=== PATIENT | female | born 1990 | race Caucasian/White ===

== ENCOUNTER 2022-02-21 09:19 | Outpatient (CLI) | payer BC, SELFPAY ==
[2022-02-21 11:22] LABS: Basophils Absolute Auto 0.1 K/mm3 (0.0-0.1); Basophils Percent Auto 0.3 % (0.2-1.2); Eosinophils Absolute Auto 0.1 K/mm3 (0-0.3); Eosinophils Percent Auto 0.3 % (0-4.4); Hematocrit 33.7 % (37.0-47.0); Hemoglobin 11.6 g/dL (12.0-15.0); Immature Granulocyte Absolute 0.13 K/mm3 (0.00-0.031); Immature Granulocyte Percent A 0.9 % (0-0.5); Lymphocytes Absolute Auto 2.33 K/mm3 (0.9-3.2); Lymphocytes Percent Auto 16.3 % (18.3-44.2); Mean Corpuscular HGB Conc 34.4 g/dl (32-36); Mean Corpuscular Hemoglobin 30.4 pg (26-34); Mean Corpuscular Volume 88.2 fl (80-100); Monocytes Absolute Auto 0.6 K/mm3 (0.1-0.6); Monocytes Percent Auto 3.9 % (2.6-8.5); Neutrophils Absolute Auto 11.2 K/mm3 (1.3-6.7); Neutrophils Percent Auto 78.3 % (45.5-73.1); Platelet Count Result 261 k/mm3 (150-375); Red Blood Count 3.82 M/mm3 (4.2-5.4); Red Cell Distribution Width 12.6 % (11.5-14.5); White Blood Count 14.3 K/mm3 (4.5-10.0)
[2022-02-21 11:30] LABS: Glucose 1 Hour PP 50gm Dose 121 mg/dL
[2022-02-21 12:12] LABS: HIV 1/2 Ab P24 Ag Result Negative (Negative)
[2022-02-21 12:23] LABS: Hepatitis B Surface Antigen Negative (Negative); Rubella IgG Antibody 9.5 IU/ML
[2022-02-21 15:56] LABS: Rapid Plasma Reagin Non-Reactive (NonReactive)
== END 2022-02-21 09:20 | disposition home or self-care (01) ==
PROVIDERS: Visit Provider Obstetrics & Gynecology
DX: N94.89 Other specified conditions associated with female genital organs and menstrual cycle (principal)
CPT/HCPCS: 36415; 82947; 85025; 86592; 86644; 86703; 86747; 86762; 86787; 86850; 86900; 86901; 87086; 87340; G0432

== ENCOUNTER 2022-06-14 09:47 | Outpatient (CLI) | payer BC, SELFPAY ==
[2022-06-14 11:14] LABS: Basophils Absolute Auto 0.1 K/mm3 (0.0-0.1); Basophils Percent Auto 0.5 % (0.2-1.2); Eosinophils Absolute Auto 0.3 K/mm3 (0-0.3); Eosinophils Percent Auto 1.9 % (0-4.4); Hematocrit 32.6 % (37.0-47.0); Hemoglobin 10.9 g/dL (12.0-15.0); Immature Granulocyte Absolute 0.45 K/mm3 (0.00-0.031); Lymphocytes Percent Auto 14.7 % (18.3-44.2); Mean Corpuscular HGB Conc 33.4 g/dl (32-36); Mean Corpuscular Hemoglobin 29.5 pg (26-34); Mean Corpuscular Volume 88.3 fl (80-100); Mean Platelet Volume 10.5 fl (7.4-10.4); Monocytes Absolute Auto 0.8 K/mm3 (0.1-0.6); Monocytes Percent Auto 5.6 % (2.6-8.5); Neutrophils Absolute Auto 11.1 K/mm3 (1.3-6.7); Neutrophils Percent Auto 74.3 % (45.5-73.1); Platelet Count Result 233 k/mm3 (150-375); Red Blood Count 3.69 M/mm3 (4.2-5.4); Red Cell Distribution Width 13.2 % (11.5-14.5)
[2022-06-14 11:28] LABS: Glucose 1 Hour PP 50gm Dose 132 mg/dL
[2022-06-14 12:08] LABS: HIV 1/2 Ab P24 Ag Result Negative (Negative)
== END 2022-06-14 09:48 | disposition home or self-care (01) ==
LOC: ANHLAB 09:48
PROVIDERS: Visit Provider Obstetrics & Gynecology
DX: Z34.90 Encounter for supervision of normal pregnancy, unspecified, unspecified trimester (principal); Z3A.00 Weeks of gestation of pregnancy not specified
CPT/HCPCS: 36415; 82947; 85025; 86703; G0432

== ENCOUNTER 2022-07-30 11:17 | Outpatient (CLI) | payer BC, SELFPAY ==
[2022-07-30] VITALS (8 sets, daily range): BP systolic 135–144; BP diastolic 86–100; PULSE 88–109; BMI 40.1
--- NOTE | ~2022-07-30 | US_ITS ---
EXAMINATION: US OB limited w BPP DATE: 07/30/2022 13:34 HOSPITALITY MANAGER INDICATION: Hypertension during . TECHNIQUE: Real-time transabdominal obstetric ultrasound. FINDINGS: Comparison to 05/10/2002 There is a single living fetus in vertex presentation. The placenta is posterior without placenta pr evia. SHANT is normal measuring 1.7 cm. cardiac activity and movement is noted with a heart rate of 155 beats per minute. Biophysical profile: breathin of 2 movement: 2 of 2 tone: 2 of 2 Amniotic flud pocket: 2 of 2 Total score: 8 of 8 IMPRESSION: 1. Single living intrauterine in vertex presentation. 2: Total biophysical profile score of 8/8. Reviewed, dictated and finalized at location L. ITALITY MANAGER
[2022-07-30 12:11] LABS: Basophils Percent Auto 0.3 % (0.2-1.2); Eosinophils Absolute Auto 0.1 K/mm3 (0-0.3); Eosinophils Percent Auto 0.4 % (0-4.4); Hematocrit 35.6 % (37.0-47.0); Hemoglobin 11.7 g/dL (12.0-15.0); Immature Granulocyte Absolute 0.16 K/mm3 (0.00-0.031); Immature Granulocyte Percent A 1.2 % (0-0.5); Lymphocytes Absolute Auto 1.96 K/mm3 (0.9-3.2); Lymphocytes Percent Auto 15.1 % (18.3-44.2); Mean Corpuscular HGB Conc 32.9 g/dl (32-36); Mean Corpuscular Hemoglobin 28.7 pg (26-34); Mean Corpuscular Volume 87.5 fl (80-100); Mean Platelet Volume 11.2 fl (7.4-10.4); Monocytes Absolute Auto 0.9 K/mm3 (0.1-0.6); Monocytes Percent Auto 6.8 % (2.6-8.5); Neutrophils Absolute Auto 9.9 K/mm3 (1.3-6.7); Neutrophils Percent Auto 76.2 % (45.5-73.1); Platelet Count Result 235 k/mm3 (150-375); Red Blood Count 4.07 M/mm3 (4.2-5.4); Red Cell Distribution Width 15.1 % (11.5-14.5)
[2022-07-30 12:16] LABS: Appearance Urine Clear (Clear); Bilirubin Urine Negative (Negative); Blood Urine Negative (Negative); Color Urine Yellow (Yellow); Glucose Urine UA Negative (Negative); Ketones Urine Negative (Negative); Leukocyte Esterase Ur Trace LEU/UL (Negative); Nitrate Urine Negative (Negative); Protein Urine 1+ mg/dL (Negative); Specific Grav Ur 1.025 (1.001-1.035); Urobilinogen Urine 0.2 mg/dL (<2.0); pH Urine 7.5 (5.0-9.0)
[2022-07-30 12:21] LABS: Creatinine Urine 131.4 mg/dL; Total Protein Urine Random 40 mg/dL
[2022-07-30 12:22] LABS: Bacteria Urine Trace /hpf; Mucus Urine Rare /lpf; RBC Urine 0-2 /hpf (0-2); Squamous Epithelial Cell Urine Many /hpf (Few)
[2022-07-30 12:24] LABS: Add Urine Microscopic? YES
[2022-07-30 12:36] LABS: Alanine Aminotransferase 13 U/L (6-35); Albumin Level 3.6 g/dL (3.5-5.1); Alkaline Phosphatase 145 U/L (38-126); Anion Gap 4 mmol/L (8-16); Aspartate Amino Transferase 18 U/L (14-36); Bilirubin,Total 0.4 mg/dL (0.2-1.3); Blood Urea Nitrogen 6 mg/dL (7-17); Calcium 9.3 mg/dL (8.4-10.2); Carbon Dioxide 22 mmol/L (22-30); Chloride 108 mmol/L (98-107); Estimated CRCL calculation 130 ml/min; Estimated Glomerular Filt Rate > 60; Glucose 77 mg/dL (65-110); Potassium 4.2 mmol/L (3.4-5.0); Sodium 134 mmol/L (137-145); Uric Acid 5.1 mg/dL (2.5-7.5)
--- NOTE | 2022-07-30 12:51 | PC.NURSE ---
Dr. Mckeon informed of BP's, and lab results. OK to discharge to home and come back am for induction of labor. Give preeclampsia precautions.
--- NOTE | 2022-07-30 12:58 | PC.NURSE ---
Called Dr. Mckeon back and informed him baby just had a 30 sec variable down to 130 and a couple of other variables were noted when entire tracing was reviewed prior to discharging pt. Order received for BPP and SHANT.
--- NOTE | 2022-07-30 13:45 | PC.NURSE ---
Dr. Mckeon informed BPP 01/14 and SHANT is 11.7 cm. OK to discharge pt to home, but he wants to change her induction of labor to tomorrow evening and start with Cervidil. Pt informed of plan of care and questions answered.
== END 2022-07-30 13:59 | disposition home or self-care (01) ==
LOC: ANHOBOP 11:22 → ANHOBPP 11:24
PROVIDERS: Visit Provider Obstetrics & Gynecology
DX: O13.9 Gestational [pregnancy-induced] hypertension without significant proteinuria, unspecified trimester (principal); Z3A.00 Weeks of gestation of pregnancy not specified
CPT/HCPCS: 36415; 59025; 76815; 76819; 80053; 81001; 82570; 84156; 84550; 85025; 87077; 87086; 87088; 99199

== ENCOUNTER 2022-07-31 15:54 | Inpatient (IN) | payer BC, SELFPAY ==
[2022-07-31] VITALS (32 sets, daily range): BP systolic 117–153; BP diastolic 60–111; PULSE 90–114; RESP 12–18; TEMP 36.8–37; BMI 39.4
[2022-07-31] MEDS: DINOPROSTONE 10 MG VAG INSERT VAGINAL (17:18)
[2022-07-31] MEDS: LACTATED RINGERS 1,000 ML 125 ML IV CONT (17:19)
[2022-07-31] MEDS: AMPICILLIN 2 GM/NS 100 ML 2 GM/100 ML BAG IVPB (17:19)
[2022-07-31 18:29] LABS: Basophils Percent Auto 0.3 % (0.2-1.2); Eosinophils Absolute Auto 0.1 K/mm3 (0-0.3); Eosinophils Percent Auto 0.7 % (0-4.4); Hematocrit 34.9 % (37.0-47.0); Hemoglobin 11.5 g/dL (12.0-15.0); Immature Granulocyte Absolute 0.11 K/mm3 (0.00-0.031); Immature Granulocyte Percent A 0.9 % (0-0.5); Lymphocytes Absolute Auto 1.64 K/mm3 (0.9-3.2); Mean Corpuscular Hemoglobin 28.9 pg (26-34); Mean Corpuscular Volume 87.7 fl (80-100); Mean Platelet Volume 11.8 fl (7.4-10.4); Monocytes Absolute Auto 0.8 K/mm3 (0.1-0.6); Monocytes Percent Auto 7.2 % (2.6-8.5); Neutrophils Percent Auto 76.9 % (45.5-73.1); Platelet Count Result 244 k/mm3 (150-375); Red Blood Count 3.98 M/mm3 (4.2-5.4); Red Cell Distribution Width 15.2 % (11.5-14.5); White Blood Count 11.7 K/mm3 (4.5-10.0)
--- NOTE | 2022-07-31 18:56 | WPDANESEPP ---
Anes - Eval Pre Procedure Procedure: labor epidural Date/Time: 07/31/22 18:56 Surgeon: sydnie Preop Diagnosis: pain during labor Pre Op Diagnosis: iol Patient Data Age: 31 Gender: F Height: 1.6 m Weight: 101 kg Last Vital Signs Pulse 109 H 07/31/22 18:46 BP 140/87 07/31/22 18:46 Allergies Allergy/AdvReac Type Severity Reaction Status Date / Time No Known Allergies Allergy Verified 07/30/22 10:26 Home Medications Medication Instructions Recorded Confirmed Type vitamins-iron fumarate 65 1 tablet PO DAILY 01/21/22 07/31/22 History mg iron-folic acid 1 mg tablet ferrous sulfate 325 mg (65 mg 325 mg PO DAILY 07/01/22 07/31/22 History iron) tablet Laboratory Tests 07/31/22 07/31/22 07/31/22 16:34 16:34 16:34 WBC 11.7 K/mm3 H K/mm3 (4.5-10.0) RBC 3.98 M/mm3 L M/mm3 (4.2-5.4) Hgb 11.5 g/dL L g/dL (12.0-15.0) Hct 34.9 % L % (37.0-47.0) MCV 87.7 fl fl (80-100) MCH 28.9 pg pg (26-34) MCHC 33.0 g/dl g/dl (32-36) RDW 15.2 % H % (11.5-14.5) Plt Count 244 k/mm3 k/mm3 (150-375) MPV 11.8 fl H fl (7.4-10.4) Immature Gran % (Auto) 0.9 % H % (0-0.5) Neut % (Auto) 76.9 % H % (45.5-73.1) Lymph % (Auto) 14.0 % L % (18.3-44.2) [place] % (Auto) 7.2 % % (2.6-8.5) Eos % (Auto) 0.7 % % (0-4.4) Baso % (Auto) 0.3 % % (0.2-1.2) Lymph # (Auto) 1.64 K/mm3 K/mm3 (0.9-3.2) [place] # (Auto) 0.8 K/mm3 H K/mm3 (0.1-0.6) Eos # (Auto) 0.1 K/mm3 K/mm3 (0-0.3) Baso # (Auto) 0.0 K/mm3 K/mm3 (0.0-0.1) Abs Immat Gran (auto) 0.11 K/mm3 H K/mm3 (0.00-0.031) Absolute Neuts (auto) 9.0 K/mm3 H K/mm3 (1.3-6.7) Absolute Nucleated RBC 0.0 K/mm3 K/mm3 (0.0-0.012) Nucleated RBC % 0.0 % % (0.0-0.2) RPR Pending Blood Type O Positive Antibody Screen Negative Patient hx anesthesia problems: none Family hx anesthesia problems: none Results Review: All pre-operative results and documents have been reviewed as part of the pre-operative evaluation. [facility] Past Medical History Medical History (Updated 07/31/22 @ 18:57 by Martha Quarles CRNA) IUP (intrauterine ), incidental Obesity (BMI 30-39.9) Suppression of menstruation Family History Family History Other Patient denies significant medical history Social History Social History Smoking status: Never smoker Tobacco type: cigarettes Smoking end date: 06/09/01 Alcohol intake: never Substance use: never Substance use type: does not use Lack of Transportation: No Lack of Food: Never True Current Housing: I Have Housing Concerned About Future Housing: No Difficulty Paying Gas/Electric Bills: No Difficulty Paying for Meds: No Currently Unemployed: No Education: High School Diploma/GED Difficulty w/ Childcare or Family Care: No Living arrangements: other Additional living arrangements comments: Occupation/Education: other Additional occupation/education comments: stay at home mom Gender identity (if verbalized by the patient): Female Sexual Orientation (if Verbalized by the Patient): Straight or Heterosexual Spiritual care concerns: No Exam Day of Procedure 07/31/22 18:56
[2022-07-31] MEDS: AMPICILLIN 1 GM/NS 50 ML 1 GM/50 ML BAG IVPB (21:50)
[2022-08-01] VITALS (259 sets, daily range): BP systolic 86–166; BP diastolic 42–137; PULSE 70–190; RESP 16–20; TEMP 36.5–37.7; O2SAT 79–100
[2022-08-01] MEDS: AMPICILLIN 1 GM/NS 50 ML 1 GM/50 ML BAG IVPB ×5 (02:05→18:56)
[2022-08-01] MEDS: OXYTOCIN 30 UNITS/NS 500 ML 30 UNITS/500 ML BAG IV CONT (06:06)
[2022-08-01] MEDS: LACTATED RINGERS 1,000 ML 125 ML IV CONT ×3 (07:10→19:11)
[2022-08-01] MEDS: ONDANSETRON INJ 4 MG/2 ML VIAL IV PUSH (10:46)
[2022-08-01 13:09] LABS: Rapid Plasma Reagin Non-Reactive (NonReactive)
--- NOTE | 2022-08-01 19:53 | WPDHPUPDATE1 ---
History and Physical Update Update Date/Time: 08/01/22 19:53 Patient has been laboring slowly today, baby has been tolerating labor until [id number] ago. Baby is not tachycardic with minimal to moderate variability. Had been having decelerations but these have resolved. However with her pushing and still at 0 station with large amount of caput and likely occiput transverse position I have discussed with the patient and we will proceed with primary delivery both due to arrest of descent as well as tachycardia with minimal variability. Questions have been answered and patient and agree with plan of care. Assessment: 1. 40 week intrauterine 2. Arrest of descent 3. tachycardia with minimal variability 4. Meconium-stained fluid Plan: 1. Proceed with primary low-transverse section with pediatric physician in attendance History and Physical has been reviewed, including an updated exam of the patient. There are NO changes in the patient's condition. Risks, benefits, and alternatives have been discussed and questions answered. Patient agrees to proceed with procedure.
[2022-08-01] MEDS: ceFAZolin 2 GM/D5W 50 ML 2 GM/50 ML BAG IVPB (19:55)
--- NOTE | 2022-08-01 19:56 | WPDOBADMIT ---
Obstetrics - Admit Note Admission Note: record reviewed. No pertinent additions to the history and/or any subsequent changes in the physical findings that are not consistent with the expected course of the were found. Additions to the history and/or subsequent changes in the physical findings follow. None.
--- NOTE | 2022-08-01 20:37 | P.PCNOB_ITS ---
OB - Delivery Note Procedure Procedure: Procedures Operation Date: 08/01/22 19:55 <No data on this case meets the specified criteria> Events: Positive Group B Strep (GBS) Intrapartal Events: Arrest of Descent and Non-Reassuring Status Induction method: Per Misoprostol Protocol Delivery augmentation: Rupture of Membranes and Pitocin Delivery monitor: External FHT and External Uterine Route of delivery: Prior to decision for section, ACOG/SM labor guidelines were considered and discussed with the patient and staff. Decision made to proceed with the section.: Yes Specimen: Yes ( placenta) Quantitative Blood Loss (ml): 660 Anesthesia type: Epidural Disposition: Floor Complications: None Narrative: patient prepped draped usual manner for this procedure. Pfannenstiel incision was made and carried down to the fascia which was then extended bilaterally the length of the skin incision. Superiorly and inferiorly dissected away from the rectus muscles. Peritoneum was readily entered bladder flap was developed. Uterus scored with a coning stained fluid noted. Vertex was delivered without difficulty and the rest of baby followed cord clamped cut baby was passed off to crystal flat grinder in attendance. Placenta was then removed manually and the placenta was cleared of membranes and clots. 0 Monocryl was used to approximate the uterine incision. There was a small extension in the midline approximately 2cm which was also closed using 0 Monocryl in a running interlocking manner. At the end of the closure of the incision hemostasis had been achieved. Uterus was turned to the abdomen incision again inspected with 1 small area of oozing which was readily entered rendered hemostatic using a [id number] 0 Monocryl suture. All subfascial tissue was noted be hemostatic the fascia was then approximated using 0 Vicryl from the left angle to midline and the right angle to midline. Subcutaneous tissue was approximated using 0 plain and maico were used to approximate the skin edges. Patient was sent to recovery room stable condition. Baby Weeks of gestation at delivery: 40 gender: Female Weight (pounds): 8 Weight (ounces): 1 presentation: vertex position: Transverse Placenta delivery description: Manual Removal Cord Vessel Description: 3 Vessels [facility]G Delivery Billing Delivery Delivery: Delivery Charge
[2022-08-01] MEDS: OXYTOCIN 30 UNITS/NS 500 ML 30 UNITS/500 ML BAG 125 UNITS IV CONT (21:21)
[2022-08-01] MEDS: HYDROmorphone HCL INJ (*CRX) 1 MG/ML SYR 0.5 MG IV PUSH (22:25)
--- NOTE | 2022-08-01 23:22 | OBPPTRN ---
Patient transferred to post room #282 via stretcher. Support person present. Oriented to unit, room, information board, rooming in, admission packet and security measures. Patient verbalizes understanding.
[2022-08-02] MEDS: DEXTROSE 5%/0.45% SOD CHL 1,000 ML 125 ML IV CONT (02:34)
[2022-08-02 04:40] VITALS: BP 121/58; PULSE 102; RESP 18; TEMP 36.9; O2SAT 100
[2022-08-02] MEDS: IBUPROFEN 600 MG TABLET PO ×3 (04:50→22:10)
[2022-08-02] MEDS: SIMETHICONE 80 MG TAB.CHEW PO ×2 (04:50→18:47)
[2022-08-02] MEDS: HYDROcodone/acetaminophen (*CRX) 10-325 MG TABLET 1 TAB PO ×3 (04:50→14:51)
[2022-08-02 05:07] LABS: Basophils Absolute Auto 0.1 K/mm3 (0.0-0.1); Basophils Percent Auto 0.2 % (0.2-1.2); Hematocrit 30.1 % (37.0-47.0); Hemoglobin 9.6 g/dL (12.0-15.0); Immature Granulocyte Absolute 0.29 K/mm3 (0.00-0.031); Immature Granulocyte Percent A 1.1 % (0-0.5); Lymphocytes Absolute Auto 1.99 K/mm3 (0.9-3.2); Lymphocytes Percent Auto 7.7 % (18.3-44.2); Mean Corpuscular HGB Conc 31.9 g/dl (32-36); Mean Corpuscular Hemoglobin 28.3 pg (26-34); Mean Corpuscular Volume 88.8 fl (80-100); Mean Platelet Volume 11.6 fl (7.4-10.4); Monocytes Absolute Auto 1.5 K/mm3 (0.1-0.6); Monocytes Percent Auto 5.9 % (2.6-8.5); Neutrophils Absolute Auto 22.1 K/mm3 (1.3-6.7); Neutrophils Percent Auto 85.1 % (45.5-73.1); Platelet Count Result 221 k/mm3 (150-375); Red Blood Count 3.39 M/mm3 (4.2-5.4); Red Cell Distribution Width 15.4 % (11.5-14.5)
[2022-08-02] MEDS: MULTIVIT/MIN/PREN/FOL AC/IRON TABLET 1 TAB PO (07:59)
[2022-08-02] MEDS: DOCUSATE SODIUM 100 MG CAPSULE PO ×2 (07:59→18:47)
[2022-08-02 08:25] VITALS: BP 114/75; PULSE 91; RESP 16; TEMP 36.6; O2SAT 99
--- NOTE | 2022-08-02 11:49 | P.PNOB_ITS ---
OB - PN: Subj Subjective Date/time seen: 08/02/22 11:49 Postoperative day 1 status post primary low-transverse section. This morning she is ambulating, has not voided as of yet though catheter was just removed. Tolerating diet and overall pain control is good. Is interested in being discharged tomorrow if still feeling well and baby doing well. VSS Afebrile Abdomen positive bowel sounds soft appropriately tender. Incision covered. Labs noted. Assessment: 1. Postoperative day 1. Status post primary low-transverse section, progressing nicely. 2. Elevated white blood cell count. She is afebrile and clinically stable and at this point would not initiate any type of antibiotic therapy. Plan: 1. Continue with incremental postoperative/ care 2. Patient desires to go home so if able tomorrow and baby doing well will set up the discharge for tomorrow. If clinically she changes or baby is unable to be discharged we will hold discharge until the following day, or whenever clinically able. OB - PN: Obj Data Labs 08/02/22 04:32 Labs: Laboratory Results - last 24 hr 07/31/22 08/02/22 16:34 04:32 WBC 26.0 H RBC 3.39 L Hgb 9.6 L Hct 30.1 L MCV 88.8 MCH 28.3 MCHC 31.9 L RDW 15.4 H Plt Count 221 MPV 11.6 H Immature Gran % (Auto) 1.1 H Neut % (Auto) 85.1 H Lymph % (Auto) 7.7 L [place] % (Auto) 5.9 Eos % (Auto) 0.0 Baso % (Auto) 0.2 Lymph # (Auto) 1.99 [place] # (Auto) 1.5 H Eos # (Auto) 0.0 Baso # (Auto) 0.1 Abs Immat Gran (auto) 0.29 H Absolute Neuts (auto) 22.1 H Absolute Nucleated RBC 0.0 Nucleated RBC % 0.0 RPR Non-reactive OB - PN A/P Time Spent With Patient Time: Total time spent is greater than 50% in coordination of care (as documented) at patient's floor/unit and/or counseling patient:
--- NOTE | 2022-08-02 11:52 | P.DS_ITS ---
DS: Admitting Diagnosis Discharge Date 08/03/2022 Admitting Diagnosis DS: Discharge Diagnosis Discharge Diagnosis (1) , delivered: Code(s): O80 - Encounter for full-term uncomplicated delivery Status: Acute OB - DS: Summary OB Procedures : None OB Procedures Intrapartum: OB Procedures: : None Peripartum Data Procedures: Procedures Operation Date: 08/01/22 19:55 Actual Procedure Side Surgeon p Section Not Applicable Adonis Mckeon MD Time Spent with Patient Time attestation: Total time spent providing and/or coordinating discharge services: DS: Data Data Completed and Pending Pending studies at discharge: Pending at discharge 08/01/22 20:13 Surgical [PTH] Routine Labs on day of discharge: Labs from last 24 hours 08/02/22 07/31/22 04:32 16:34 WBC 26.0 H RBC 3.39 L Hgb 9.6 L Hct 30.1 L MCV 88.8 MCH 28.3 MCHC 31.9 L RDW 15.4 H Plt Count 221 MPV 11.6 H Immature Gran % (Auto) 1.1 H Neut % (Auto) 85.1 H Lymph % (Auto) 7.7 L [place] % (Auto) 5.9 Eos % (Auto) 0.0 Baso % (Auto) 0.2 Lymph # (Auto) 1.99 [place] # (Auto) 1.5 H Eos # (Auto) 0.0 Baso # (Auto) 0.1 Abs Immat Gran (auto) 0.29 H Absolute Neuts (auto) 22.1 H Absolute Nucleated RBC 0.0 Nucleated RBC % 0.0 RPR Non-reactive Discharge Plan Discharge Discharging Clinician: Adonis Mckeon Patient Disposition: Home, Self-Care Activity: as tolerated Diet: as tolerated Wound Care Instructions: incision open to air Discharge Instructions: return to office Friday or Friday of next week for staple removal. Patient Instructions: Antibiotic Form Stand Alone Forms: General Discharge Information Follow-up/Referrals: Adonis Mckeon MD [Physician] - 3 Weeks Discharge Medications: New hydrocodone-acetaminophen 5-325 mg Tablet 1 tablet PO Q3H PRN (Reason: Moderate Pain (4-6)) Qty: 20 0RF ibuprofen 600 mg Tablet 600 mg PO Q6H PRN (Reason: Cramping) Qty: 30 0RF Continued vit-iron fum-folic ac 65 mg iron- 1 mg tablet 1 tablet PO DAILY ferrous sulfate 325 mg (65 mg iron) tablet 325 mg PO DAILY Date of admission: 07/31/22 15:54 Primary Care Provider: PHYSICIAN,FENCE MAKING MACHINE OPERATOR Admitting Provider: Adonis Mckeon Attending physician on admission: Adonis Mckeon Condition: Stable
[2022-08-02 12:08] VITALS: BP 116/60; PULSE 94; RESP 18; TEMP 36.6; O2SAT 99
--- NOTE | 2022-08-02 12:50 | PC.NURSE ---
[id number] Introductions were made, then consulted with patient to assess needs related to . Mother led the conversation with her?plans to feed?her infant and states she just finished . placed upright on mother and burped. Mother verbalizes she is able to independently latch with appropriate positioning/alignment. She denies any nipple discomfort and is responsively . Mother declines any additional assistance/education at this time. Mother is encouraged to call for assistance if her doesn?t latch or there is discomfort with latching. Resources provided for inpatient and outpatient services with the mom/baby guide. Mother voiced understanding of information and will call if there is a request for assistance. Reported to the primary RN.
--- NOTE | 2022-08-02 16:57 | WPDANLDNPN2 ---
Anes-Prog Note L&D-Neuraxial Date/Time: 08/02/22 16:57 Patient feedback: Patient satisfied with post-operative pain management.
--- NOTE | 2022-08-02 16:57 | WPDANLDPN2 ---
Anes-Prog Note L&D Date/Time: 08/02/22 16:57 Neuro status: Neuro function grossly intact. Vital Signs: Last Vital Signs Temp 36.6 C 08/02/22 12:08 Pulse 94 08/02/22 12:08 Resp 18 08/02/22 12:08 BP 116/60 08/02/22 12:08 Pulse Ox 99 08/02/22 12:08 O2 Del Method Room Air 08/02/22 07:59 Pain score (VAS): 0 I/O: Intake & Output 08/02/22 08/02/22 08/02/22 07:59 15:59 23:59 Intake Total 300 Output Total 650 300 Balance -350 -300 Patient feedback: Patient satisfied with anesthetic care.
[2022-08-02 17:05] VITALS: BP 114/71; PULSE 86; RESP 18; TEMP 36.9; O2SAT 97
[2022-08-02] MEDS: HYDROcodone/acetaminophen (*CRX) 5-325 MG TABLET 1 TAB PO ×2 (18:46→22:10)
[2022-08-02 19:47] VITALS: BP 129/81; PULSE 98; RESP 18; TEMP 36.6; O2SAT 98
[2022-08-03] MEDS: HYDROcodone/acetaminophen (*CRX) 5-325 MG TABLET 1 TAB PO ×3 (03:00→12:01)
[2022-08-03] MEDS: IBUPROFEN 600 MG TABLET PO (07:30)
[2022-08-03] MEDS: SIMETHICONE 80 MG TAB.CHEW PO (07:31)
[2022-08-03] MEDS: MULTIVIT/MIN/PREN/FOL AC/IRON TABLET 1 TAB PO (07:32)
[2022-08-03] MEDS: DOCUSATE SODIUM 100 MG CAPSULE PO (07:33)
[2022-08-03] MEDS: POLYSACCHARIDE IRON COMPLEX 150 MG CAPSULE PO (07:35)
[2022-08-03] MEDS: LANOLIN (LANSINOH) 7.5 GM CREAM 1 APPLIC TOPICAL (07:37)
--- NOTE | 2022-08-03 10:09 | PM.OBPNVD ---
OB - PN: Subj Subjective Date/time seen: 08/03/22 10:09 Interval history: She is tolerating regular diet, positive flatus, no leg pain. She has ambulated without difficulty. Reports adequate pain control with medication. OB - PN: Obj Data Labs 08/02/22 04:32 OB - PN A/P Assessment and Plan (1) Delivery by section: Status: Acute Assessment and Plan: POD 2 s/p primary . She is doing well. She request discharge today. Discharge precautions discussed. Time Spent With Patient Time: Total time spent is greater than 50% in coordination of care (as documented) at patient's floor/unit and/or counseling patient: Exam Const: General: comfortable and no acute distress Eyes: General: appearance normal, both eyes and all related structures Resp: Effort & Inspection: normal respiratory effort GI: Inspection: normal to inspection Other: incision clean dry intact, maico intact Neuro: General: oriented to person, oriented to place and oriented to time Extrem: General: normal to inspection, no calf tenderness and other (tr edema bilat) Psych: Mental Status: mental status grossly normal
[2022-08-03 10:30] VITALS: BP 127/76; PULSE 80; RESP 16; TEMP 36.4; O2SAT 100
[2022-08-03] MEDS: MEASLES,MUMPS,RUBELLA VACCINE 0.5 ML VIAL SUB-Q (11:56)
[2022-08-03] MEDS: TETANUS,DIPHTHERIA,AC PERTUSSIS ADULT (0.5 ML) BOOSTRIX IM (11:59)
[2022-08-05 11:39] VITALS: BP 140/90; PULSE 90; RESP 16; TEMP 37.1; O2SAT 99
== END 2022-08-03 12:40 | disposition home or self-care (01) | DRG 788 ==
LOC: ANHLDR 15:57 → ANHOB2 08-01 23:23
PROVIDERS: Admitting Provider Obstetrics & Gynecology; Visit Provider Obstetrics & Gynecology
PROC: 10D00Z1 Extraction of Products of Conception, Low, Open Approach (ICD-10-PCS; CPT 59514; principal; 2022-08-01 19:55)
DX: O62.1 Secondary uterine inertia (principal); O76 Abnormality in fetal heart rate and rhythm complicating labor and delivery; O77.0 Labor and delivery complicated by meconium in amniotic fluid; O99.824 Streptococcus B carrier state complicating childbirth; Z3A.40 40 weeks gestation of pregnancy; Z37.0 Single live birth
CPT/HCPCS: 36415; 85025; 86592; 86850; 86900; 86901; 88307; 90710; 90715; A9270; J0290; J0456; J0690; J1170; J2175; J2274; J2370; J2405; J2590; J2795; J7120

== ENCOUNTER 2023-05-27 10:52 | Outpatient (CLI) | payer BC, SELFPAY ==
[2023-05-27 12:42] LABS: Basophils Absolute Auto 0.1 K/mm3 (0.0-0.1); Basophils Percent Auto 0.4 % (0.2-1.2); Eosinophils Absolute Auto 0.1 K/mm3 (0-0.3); Eosinophils Percent Auto 0.4 % (0-4.4); Hematocrit 36.6 % (37.0-47.0); Immature Granulocyte Absolute 0.09 K/mm3 (0.00-0.031); Immature Granulocyte Percent A 0.7 % (0-0.5); Lymphocytes Absolute Auto 2.46 K/mm3 (0.9-3.2); Lymphocytes Percent Auto 19.5 % (18.3-44.2); Mean Corpuscular HGB Conc 32.8 g/dl (32-36); Mean Corpuscular Hemoglobin 29.2 pg (26-34); Mean Corpuscular Volume 89.1 fl (80-100); Monocytes Absolute Auto 0.5 K/mm3 (0.1-0.6); Monocytes Percent Auto 3.7 % (2.6-8.5); Neutrophils Absolute Auto 9.5 K/mm3 (1.3-6.7); Neutrophils Percent Auto 75.3 % (45.5-73.1); Platelet Count Result 248 k/mm3 (150-375); Red Blood Count 4.11 M/mm3 (4.2-5.4); White Blood Count 12.6 K/mm3 (4.5-10.0)
[2023-05-27 12:51] LABS: Glucose 1 Hour PP 50gm Dose 141 mg/dL
[2023-05-27 13:33] LABS: HIV 1/2 Ab P24 Ag Result Negative (Negative)
[2023-05-27 14:26] LABS: Hepatitis B Surface Antigen Negative (Negative); Rubella IgG Antibody 56.5 IU/ML
[2023-05-27 14:38] LABS: Rapid Plasma Reagin Non-Reactive (NonReactive)
[2023-05-30 07:45] LABS: CMV IgG Antibody <0.60 U/mL (<0.60)
== END 2023-05-27 10:53 | disposition home or self-care (01) ==
LOC: ANHLAB 10:53
PROVIDERS: Visit Provider Obstetrics & Gynecology
DX: N91.2 Amenorrhea, unspecified (principal)
CPT/HCPCS: 36415; 82947; 84702; 85025; 86592; 86644; 86703; 86747; 86762; 86787; 86850; 86900; 86901; 87086; 87088; 87340; G0432

== ENCOUNTER 2023-06-05 06:58 | Outpatient (CLI) | payer BC, SELFPAY ==
[2023-06-05 07:53] LABS: Glucose Fasting Gestational 87 mg/dL (>/=95)
[2023-06-05 10:16] LABS: Glucose 2 Hour Gest 120 mg/dL (>/= 155)
[2023-06-05 10:23] LABS: Glucose 1 Hour Gest 129 mg/dL (>/=180)
[2023-06-05 11:48] LABS: Glucose 3 Hour Gest 85 mg/dL (>/=140)
== END 2023-06-05 06:59 | disposition home or self-care (01) ==
LOC: ANHLAB 06:59
PROVIDERS: Visit Provider Obstetrics & Gynecology
DX: R73.09 Other abnormal glucose (principal)
CPT/HCPCS: 36415; 82951; 82952

== ENCOUNTER 2023-08-04 10:25 | Outpatient (CLI) | payer BC, SELFPAY ==
[2023-08-04 11:53] LABS: Basophils Percent Auto 0.3 % (0.2-1.2); Eosinophils Absolute Auto 0.1 K/mm3 (0-0.3); Eosinophils Percent Auto 0.7 % (0-4.4); Hematocrit 35.2 % (37.0-47.0); Hemoglobin 11.7 g/dL (12.0-15.0); Immature Granulocyte Absolute 0.12 K/mm3 (0.00-0.031); Immature Granulocyte Percent A 1.1 % (0-0.5); Lymphocytes Percent Auto 16.8 % (18.3-44.2); Mean Corpuscular HGB Conc 33.2 g/dl (32-36); Mean Corpuscular Hemoglobin 29.5 pg (26-34); Mean Corpuscular Volume 88.9 fl (80-100); Mean Platelet Volume 10.8 fl (7.4-10.4); Monocytes Absolute Auto 0.7 K/mm3 (0.1-0.6); Monocytes Percent Auto 6.2 % (2.6-8.5); Neutrophils Absolute Auto 8.5 K/mm3 (1.3-6.7); Neutrophils Percent Auto 74.9 % (45.5-73.1); Platelet Count Result 253 k/mm3 (150-375); Red Blood Count 3.96 M/mm3 (4.2-5.4); Red Cell Distribution Width 13.4 % (11.5-14.5); White Blood Count 11.3 K/mm3 (4.5-10.0)
[2023-08-04 12:15] LABS: Glucose 1 Hour PP 50gm Dose 84 mg/dL
[2023-08-04 12:50] LABS: HIV 1/2 Ab P24 Ag Result Negative (Negative)
== END 2023-08-04 10:26 | disposition home or self-care (01) ==
PROVIDERS: Visit Provider Obstetrics & Gynecology
DX: Z34.90 Encounter for supervision of normal pregnancy, unspecified, unspecified trimester (principal); Z3A.00 Weeks of gestation of pregnancy not specified
CPT/HCPCS: 36415; 82947; 85025; 86703; G0432

== ENCOUNTER 2023-10-21 08:49 | Outpatient (CLI) | payer BC, SELFPAY ==
[2023-10-21 10:01] LABS: Hematocrit 39.6 % (37.0-47.0); Hemoglobin 13.1 g/dL (12.0-15.0); Mean Corpuscular HGB Conc 33.1 g/dl (32-36); Mean Corpuscular Hemoglobin 28.9 pg (26-34); Mean Corpuscular Volume 87.4 fl (80-100); Mean Platelet Volume 11.7 fl (7.4-10.4); Platelet Count Result 242 k/mm3 (150-375); Red Blood Count 4.53 M/mm3 (4.2-5.4); Red Cell Distribution Width 15.2 % (11.5-14.5); White Blood Count 11.7 K/mm3 (4.5-10.0)
[2023-10-21 15:07] LABS: Rapid Plasma Reagin Non-Reactive (NonReactive)
== END 2023-10-21 08:50 | disposition home or self-care (01) ==
LOC: ANHLAB 08:51
PROVIDERS: Visit Provider Obstetrics & Gynecology
DX: Z34.93 Encounter for supervision of normal pregnancy, unspecified, third trimester (principal); Z3A.00 Weeks of gestation of pregnancy not specified
CPT/HCPCS: 36415; 85027; 86592; 86850; 86900; 86901

== ENCOUNTER 2023-10-22 05:15 | Inpatient (IN) | payer BC, SELFPAY ==
[2023-10-22] VITALS (23 sets, daily range): BP systolic 86–168; BP diastolic 27–121; PULSE 70–157; RESP 13–22; TEMP 36.6–37.6; O2SAT 94–100; BMI 42.1
[2023-10-22] MEDS: LACTATED RINGERS 1,000 ML 125 ML IV CONT (06:00)
[2023-10-22] MEDS: ACETAMINOPHEN 500 MG TABLET 1000 MG PO (06:30)
--- NOTE | 2023-10-22 06:32 | LDADM ---
This patient, Greg Tello, was admitted to Labor/Delivery/Recovery 119 on 10/22/23 at 05:15. Plans for Csection, pain management and were discussed with patient. Patient/family oriented to hospital policies and general routines including ID bracelet, bed and alarms, visiting hours, pain management, procedures, bathroom and other care routines, personal items, smoking policy, room service/diet and guest tray routines, infant security routines, and visiting hours. Patient/Family are encouraged to report perceived risks to care and to ask questions if they do not understand what they are told or what they should do. See OBIX for further documentation.
[2023-10-22] MEDS: FAMOTIDINE 20 MG/2 ML VIAL IV PUSH (07:03)
[2023-10-22] MEDS: ONDANSETRON INJ 4 MG/2 ML VIAL IV PUSH (07:03)
--- NOTE | 2023-10-22 07:09 | PM.IMHP ---
H&P: HPI History of Present Illness Date/Time: 10/22/23 07:09 32-year-old 4 para 2011 female presents at 39 weeks for repeat delivery. records are on the chart with no significant abnormalities. One prior vaginal delivery, 1 prior delivery. Chief Complaint: Review of Systems Review of Systems: All systems reviewed & are unremarkable except as noted in HPI and below PMFSH Past Medical History Medical History IUP (intrauterine ), incidental Obesity (BMI 30-39.9) Suppression of menstruation Surgical History Surgical History Delivery by section (08/01/22) primary c/s Arrest of Descent and Non-Reassuring Status Family History Family History Other Patient denies significant medical history Social History Social History Smoking status: Never smoker Tobacco type: cigarettes Second hand tobacco smoke exposure: No Smoking end date: 06/09/01 Alcohol intake: never Substance use: never Substance use type: does not use Do You Feel Safe in your Home?: Yes Lack of Transportation: No Lack of Food: Never True Current Housing: I Have Housing Concerned About Future Housing: No Difficulty Paying Gas/Electric Bills: No Difficulty Paying for Meds: No Currently Unemployed: No Education: High School Diploma/GED Difficulty w/ Childcare or Family Care: No Living arrangements: other Additional living arrangements comments: Occupation/Education: other Additional occupation/education comments: stay at home mom Gender identity (if verbalized by the patient): Female Sexual Orientation (if Verbalized by the Patient): Straight or Heterosexual Spiritual care concerns: No Meds Home Medications and Allergies Home Medications Medication Instructions Recorded Confirmed Type vitamins-iron fumarate 65 1 tablet PO DAILY 01/21/22 10/20/23 History mg iron-folic acid 1 mg tablet ferrous sulfate 325 mg (65 mg 325 mg PO DAILY 07/01/22 10/20/23 History iron) tablet azithromycin 250 mg tablet See Rx Instructions PO .COMPLEX #6 10/20/23 10/22/23 Rx tabs Allergies Allergy/AdvReac Type Severity Reaction Status Date / Time No Known Allergies Allergy Verified 10/22/23 06:52 Vital Signs Vital Signs - 24 hr 10/22/23 06:03 10/22/23 06:15 10/22/23 06:30 Pulse Rate 101 H 98 99 Blood Pressure 145/93 H 145/84 H 148/97 H Oxygen Delivery 10/22/23 06:45 10/22/23 06:47 10/22/23 06:32 Pulse Rate 103 H 100 Blood Pressure 168/121 H 141/92 H Oxygen Delivery Room Air Exam Const: General: cooperative Resp: Effort & Inspection: normal respiratory effort Auscultation: clear to auscultation bilaterally Cardio: Rate: regular rate Rhythm: regular rhythm GI: Inspection: normal to inspection Auscultation: normal bowel sounds : Bimanual exam- vagina & uterus: enlarged (FH 40 FHT 140) Assessment and Plan Assessment and plan (1) 39 weeks gestation of : Code(s): Z3A.39 - 39 weeks gestation of Status: Acute (2) Previous delivery affecting , antepartum: Code(s): O34.219 - Maternal care for unspecified type scar from previous delivery Status: Acute Plan proceed with repeat delivery /no tubal ligation.
--- NOTE | 2023-10-22 07:12 | WPDHPUPDATE1 ---
History and Physical Update Update Date/Time: 10/22/23 07:12 History and Physical has been reviewed, including an updated exam of the patient. There are NO changes in the patient's condition. Risks, benefits, and alternatives have been discussed and questions answered. Patient agrees to proceed with procedure.
--- NOTE | 2023-10-22 07:24 | WPDANESEPPF ---
Anes - Initial Pre Proc Eval Procedure: Operation Date: 10/22/23 07:30 Proposed Procedures p Repeat Section with Bilateral Tubal Ligation - Adonis Mckeon MD Date/Time: 10/22/23 07:24 Surgeon: Adonis Mckeon MD Pre Op Diagnosis: Induction of Labor Patient Data Age: 32 Gender: F Height: 1.6 m Weight: 108 kg Last Vital Signs Pulse 97 10/22/23 07:15 BP 132/88 10/22/23 07:15 O2 Del Method Room Air 10/22/23 06:32 Allergies Allergy/AdvReac Type Severity Reaction Status Date / Time No Known Allergies Allergy Verified 10/22/23 06:52 Home Medications Medication Instructions Recorded Confirmed Type vitamins-iron fumarate 65 1 tablet PO DAILY 01/21/22 10/20/23 History mg iron-folic acid 1 mg tablet ferrous sulfate 325 mg (65 mg 325 mg PO DAILY 07/01/22 10/20/23 History iron) tablet azithromycin 250 mg tablet See Rx Instructions PO .COMPLEX #6 10/20/23 10/22/23 Rx tabs Patient hx anesthesia problems: none Family hx anesthesia problems: none Results Review: All pre-operative results and documents have been reviewed as part of the pre-operative evaluation. [facility] Past Medical History Medical History IUP (intrauterine ), incidental Obesity (BMI 30-39.9) Suppression of menstruation Surgical History Surgical History Delivery by section (08/01/22) primary c/s Arrest of Descent and Non-Reassuring Status Family History Family History Other Patient denies significant medical history Social History Social History Smoking status: Never smoker Tobacco type: cigarettes Second hand tobacco smoke exposure: No Smoking end date: 06/09/01 Alcohol intake: never Substance use: never Substance use type: does not use Do You Feel Safe in your Home?: Yes Lack of Transportation: No Lack of Food: Never True Current Housing: I Have Housing Concerned About Future Housing: No Difficulty Paying Gas/Electric Bills: No Difficulty Paying for Meds: No Currently Unemployed: No Education: High School Diploma/GED Difficulty w/ Childcare or Family Care: No Living arrangements: other Additional living arrangements comments: Occupation/Education: other Additional occupation/education comments: stay at home mom Gender identity (if verbalized by the patient): Female Sexual Orientation (if Verbalized by the Patient): Straight or Heterosexual Spiritual care concerns: No Anes - Eval Final PreProcedure Day of Procedure 10/22/23 07:24 Patient weight: morbidly obese Heart: regular rate and rhythm Lungs: clear to auscultation Airway: Mallampati scale class II Neurological: alert and oriented Last oral intake: >/= 8 hours ASA classification: II Emergent: no Anesthetic plan: proceed Anesthesia type and monitoring: regional spinal and standard monitoring Results Review: All pre-operative results and documents have been reviewed as part of the pre-operative evaluation. Treated w abx for recent URI/sinusitis, resolved. Informed Consent: The patient's anesthetic plan and its attendant risks and benefits were discussed with the patient/family/POA. Questions were solicited and answers provided to the satisfaction of the patient/family/POA.
--- NOTE | 2023-10-22 08:29 | P.PCNOB_ITS ---
OB - Delivery Note Procedure Delivery date: 10/22/23 Pre-op diagnosis: Previous Delivery Post-op Diagnosis: Same Procedure Performed: Repeat Secondary branch: low cervical, transverse Surgeon: Adonis Mckeon MD Anesthesia type: Spinal Description of Procedure/Findings: Patient prepped and draped usual manner for this procedure. Pfannenstiel incision was made and carried down to the fascia which was extended bilaterally the length of the skin incision. Rectus muscle bluntly dissected and peritoneum readily entered. Bladder flap developed without difficulty. Uterus was scored with clear fluid and extended the length of the lower segment. Vertex was delivered suction naso-oropharynx and cord was clamped cut. Baby was passed of the field to director of home health services. Placenta was manually removed, placenta exteriorized and cleared of membranes and clots. Uterine incision was then approximated and rendered hemostatic using 0 Vicryl in a running interlocking manner. Uterus was turned the abdomen gutters were clear 0 sings fluid and clots. Fascia was approximated using 0 Vicryl from left angle midline the right angle midline with good approximation hemostasis. Subcutaneous tissue was approximated 0 plain suture and maico were then used to approximate the skin edges. Patient was sent to the recovery room in stable condition. Specimen: No Estimated Blood Loss: 455 Drains: Yes (Catheter) Packing: No Pathology: None sent Complications: No immediate complications Condition: Stable Disposition: PACU [place] [facility] Weeks of gestation at delivery: 39 gender: Male presentation: vertex
--- NOTE | 2023-10-22 11:25 | PC.NURSE ---
Patient transferred to post room #281 via wheelchair. Support person present. Oriented to unit, room, information board, rooming in, admission packet and security measures. Patient verbalizes understanding.
--- NOTE | 2023-10-22 11:56 | PC.NURSE ---
1100 after recovery pt via stretcher taken to nursery to see baby. spent around 45min before taken upstairs to PP with significant other. report given to EDDIE
--- NOTE | 2023-10-22 14:24 | PC.NURSE ---
1230 - 1240 Introductions were made, then consulted with patient to assess needs related to . There has been separation between parent and infant at this time. Discussed with mother her?plans to feed?her infant, the?experience so far and parent shares that she has hand pumped her breast when she realized her infant was not going to join her in the recovery room right away. Resources provided for inpatient and outpatient services with the feeding sheet, mom/baby guide and name written on the communication board. Mother voiced understanding of information and will call if there is a request for assistance. Reported to the Primary RN.
[2023-10-22] MEDS: KETOROLAC 15 MG/ML VIAL (*BKC) IV PUSH ×2 (15:39→23:11)
[2023-10-22] MEDS: LIDOCAINE 5% PATCH 1 PATCH TRANSDERM (15:40)
[2023-10-22] MEDS: DOCUSATE SODIUM 100 MG CAPSULE PO (15:40)
[2023-10-22] MEDS: LANOLIN (LANSINOH) 7.5 GM CREAM 1 APPLIC TOPICAL (15:40)
[2023-10-22] MEDS: SIMETHICONE 80 MG TAB.CHEW PO (15:40)
[2023-10-22] MEDS: ACETAMINOPHEN 325 MG TABLET 650 MG PO ×2 (15:40→23:14)
[2023-10-23 03:54] VITALS: BP 137/79; PULSE 77; RESP 16; TEMP 36.9
[2023-10-23 05:02] LABS: Basophils Absolute Auto 0.1 K/mm3 (0.0-0.1); Basophils Percent Auto 0.5 % (0.2-1.2); Eosinophils Absolute Auto 0.1 K/mm3 (0-0.3); Eosinophils Percent Auto 0.8 % (0-4.4); Hematocrit 34.8 % (37.0-47.0); Immature Granulocyte Absolute 0.16 K/mm3 (0.00-0.031); Immature Granulocyte Percent A 1.2 % (0-0.5); Lymphocytes Absolute Auto 2.37 K/mm3 (0.9-3.2); Lymphocytes Percent Auto 17.3 % (18.3-44.2); Mean Corpuscular HGB Conc 31.6 g/dl (32-36); Mean Corpuscular Hemoglobin 28.6 pg (26-34); Mean Corpuscular Volume 90.6 fl (80-100); Monocytes Absolute Auto 0.9 K/mm3 (0.1-0.6); Monocytes Percent Auto 6.8 % (2.6-8.5); Neutrophils Absolute Auto 10.1 K/mm3 (1.3-6.7); Neutrophils Percent Auto 73.4 % (45.5-73.1); Platelet Count Result 182 k/mm3 (150-375); Red Blood Count 3.84 M/mm3 (4.2-5.4); Red Cell Distribution Width 15.1 % (11.5-14.5); White Blood Count 13.7 K/mm3 (4.5-10.0)
[2023-10-23] MEDS: KETOROLAC 15 MG/ML VIAL (*BKC) IV PUSH (05:20)
[2023-10-23] MEDS: ACETAMINOPHEN 325 MG TABLET 650 MG PO ×4 (05:21→23:20)
[2023-10-23 07:35] VITALS: BP 122/74; PULSE 84; RESP 18; TEMP 36.6; O2SAT 100
--- NOTE | 2023-10-23 07:52 | WPDANLDPN2 ---
Anes-Prog Note L&D Date/Time: 10/23/23 07:52 Comfortable throughout: section Neuraxial method: spinal Epidural/Spinal procedure site: clean & non-tender Neuro status: Neuro function grossly intact. Cardiovascular status: normal Respiratory status: normal Airway patency: baseline Mental status: baseline Post-Op hydration status: normal Vital Signs: Last Vital Signs Temp 36.9 C 10/23/23 03:54 Pulse 77 10/23/23 03:54 Resp 16 10/23/23 03:54 BP 137/79 10/23/23 03:54 Pulse Ox 99 10/22/23 15:25 O2 Del Method Room Air 10/22/23 10:45 Pain score (VAS): 0 I/O: Intake & Output 10/22/23 10/22/23 10/23/23 15:59 23:59 07:59 Intake Total 231 673 [id number] Output Total 525 1700 Balance -225 100 -700 Post-procedural complaints: none Patient feedback: Patient satisfied with anesthetic care.
--- NOTE | 2023-10-23 07:53 | WPDANLDNPN2 ---
Anes-Prog Note L&D-Neuraxial Date/Time: 10/23/23 07:53 Neuraxial medications: intrathecal PF morphine Opiod-related complaints: pruritis Patient feedback: Patient satisfied with post-operative pain management.
--- NOTE | 2023-10-23 09:18 | P.PNOB_ITS ---
OB - PN: Subj Subjective Date/time seen: 10/23/23 09:18 S: Pain well tolerated, avoid and diet without difficulty. O:VSS afebrile abd: Positive bowel sounds soft fundus nontender incision covered A: Doing well postop P: Pass to see baby today Discharge home tomorrow if continues to do well. OB - PN: Obj Data Labs 10/23/23 03:46 Labs: Laboratory Results - last 24 hr 10/23/23 03:46 WBC 13.7 H RBC 3.84 L Hgb 11.0 L Hct 34.8 L MCV 90.6 MCH 28.6 MCHC 31.6 L RDW 15.1 H Plt Count 182 MPV 12.0 H Immature Gran % (Auto) 1.2 H Neut % (Auto) 73.4 H Lymph % (Auto) 17.3 L [place] % (Auto) 6.8 Eos % (Auto) 0.8 Baso % (Auto) 0.5 Lymph # (Auto) 2.37 [place] # (Auto) 0.9 H Eos # (Auto) 0.1 Baso # (Auto) 0.1 Abs Immat Gran (auto) 0.16 H Absolute Neuts (auto) 10.1 H Absolute Nucleated RBC 0.000 Nucleated RBC % 0.0 OB - PN A/P Time Spent With Patient Time: Total time spent is greater than 50% in coordination of care (as documented) at patient's floor/unit and/or counseling patient:
--- NOTE | 2023-10-23 09:20 | P.DS_ITS ---
DS: Admitting Diagnosis Discharge Date 10/24/2023 Admitting Diagnosis DS: Discharge Diagnosis Discharge Diagnosis (1) , delivered: Code(s): O80 - Encounter for full-term uncomplicated delivery Status: Acute OB - DS: Summary OB Procedures : None OB Procedures Intrapartum: OB Procedures: : None Peripartum Data Procedures: Procedures Operation Date: 10/22/23 07:30 Actual Procedure Side Surgeon p Repeat Section with Bilateral Tubal Ligation Adonis Mckeon MD Time Spent with Patient Time attestation: Total time spent providing and/or coordinating discharge services: DS: Data Data Completed and Pending Labs on day of discharge: Labs from last 24 hours 10/23/23 03:46 WBC 13.7 H RBC 3.84 L Hgb 11.0 L Hct 34.8 L MCV 90.6 MCH 28.6 MCHC 31.6 L RDW 15.1 H Plt Count 182 MPV 12.0 H Immature Gran % (Auto) 1.2 H Neut % (Auto) 73.4 H Lymph % (Auto) 17.3 L [place] % (Auto) 6.8 Eos % (Auto) 0.8 Baso % (Auto) 0.5 Lymph # (Auto) 2.37 [place] # (Auto) 0.9 H Eos # (Auto) 0.1 Baso # (Auto) 0.1 Abs Immat Gran (auto) 0.16 H Absolute Neuts (auto) 10.1 H Absolute Nucleated RBC 0.000 Nucleated RBC % 0.0 Discharge Plan Discharge Discharging Clinician: Adonis Mckeon Patient Disposition: Home, Self-Care Activity: no straining, no driving, follow weight bearing status and pelvic rest Diet: as tolerated Wound Care Instructions: incision open to air Discharge Instructions: Return to office 5-7 days postop for staple removal Patient Instructions: Antibiotic Form Stand Alone Forms: General Discharge Information Follow-up/Referrals: Adonis Mckeon MD [Physician] - 3 Weeks Discharge Medications: New hydrocodone-acetaminophen 5-325 mg Tablet 1 tablet PO Q3H PRN (Reason: Breakthrough Pain Rated 4-6) Qty: 20 0RF ibuprofen 600 mg Tablet 600 mg PO Q6H Qty: 30 0RF Continued vit-iron fum-folic ac 65 mg iron- 1 mg tablet 1 tablet PO DAILY ferrous sulfate 325 mg (65 mg iron) tablet 325 mg PO DAILY azithromycin 250 mg tablet See Rx Instructions PO .COMPLEX Qty: 6 0RF Rx Instructions: For 250 mg dose pack: take 500 mg today (day 1), then 250 mg for 4 days (days 2-5) PO Date of admission: 10/22/23 05:15 Primary Care Provider: PHYSICIAN,[employer]CH[employer]BER Admitting Provider: Adonis Mckeon Attending physician on admission: Adonis Mckeon Condition: Stable
[2023-10-23] MEDS: MULTIVIT/MIN/PREN/FOL AC/IRON TABLET 1 TAB PO (09:29)
[2023-10-23] MEDS: SIMETHICONE 80 MG TAB.CHEW PO ×2 (09:29→17:17)
[2023-10-23] MEDS: DOCUSATE SODIUM 100 MG CAPSULE PO ×2 (09:30→17:17)
[2023-10-23] MEDS: IBUPROFEN 600 MG TABLET PO ×3 (10:59→23:20)
--- NOTE | 2023-10-23 11:12 | PHAR ---
HOME MED: AZITHROMYCIN 250 MG TABLETS. TAKE 2 TABLETS BY MOUTH DAY 1, AND 1 TABLET DAILY FOR 4 DAYS. 2 TABLETS LEFT IN BOX, ON LAST 2 DAYS OF THERAPY. VERIFIED IN PHARMACY 10/23/23 @ 1007
--- NOTE | 2023-10-23 11:15 | PC.NURSE ---
pt left for therapeutic visit to NICU at [facility].
--- NOTE | 2023-10-23 11:30 | PC.NURSE ---
[id number] Purposefully rounded to assess for needs. Mother shared infants progress at [facility] and she was able to have [id number] yesterday before infant was transferred. She is consistent with protecting her milk supply with pumping without pain and had 3mls of EBM to take with her to visit her . Resources were provided for mother for services while inpatient and outpatient.
[2023-10-23 16:15] VITALS: BP 143/81; PULSE 85; RESP 20; TEMP 37.2; O2SAT 100
[2023-10-23] MEDS: HYDROcodone/acetaminophen (*CRX) 5-325 MG TABLET 1 TAB PO ×2 (16:21→20:41)
[2023-10-23 20:26] VITALS: BP 136/88; PULSE 80; RESP 18; TEMP 36.4; O2SAT 99
[2023-10-24] MEDS: HYDROcodone/acetaminophen (*CRX) 5-325 MG TABLET 1 TAB PO ×2 (06:34→07:55)
[2023-10-24] MEDS: IBUPROFEN 600 MG TABLET PO (06:34)
[2023-10-24] MEDS: ACETAMINOPHEN 325 MG TABLET 650 MG PO (06:34)
[2023-10-24] MEDS: DOCUSATE SODIUM 100 MG CAPSULE PO (06:35)
[2023-10-24] MEDS: SIMETHICONE 80 MG TAB.CHEW PO (06:35)
[2023-10-24] MEDS: MULTIVIT/MIN/PREN/FOL AC/IRON TABLET 1 TAB PO (06:35)
[2023-10-24 07:25] VITALS: BP 157/87; PULSE 95; RESP 18; TEMP 36.6; O2SAT 100
[2023-10-24] MEDS: LIDOCAINE 5% PATCH 1 PATCH TRANSDERM (07:29)
== END 2023-10-24 08:00 | disposition home or self-care (01) | DRG 788 ==
LOC: ANHLDR 05:18 → ANHOB2 11:26
PROVIDERS: Admitting Provider Obstetrics & Gynecology; Visit Provider Obstetrics & Gynecology
PROC: 10D00Z1 Extraction of Products of Conception, Low, Open Approach (ICD-10-PCS; CPT 59514; principal; 2023-10-22 07:30)
DX: O34.219 Maternal care for unspecified type scar from previous cesarean delivery (principal); O99.214 Obesity complicating childbirth; O99.824 Streptococcus B carrier state complicating childbirth; Z3A.39 39 weeks gestation of pregnancy; Z37.0 Single live birth
CPT/HCPCS: 36415; 85025; A9270; J1885; J2274; J2371; J2405; J2590; J7120